=== PATIENT | female | born 1940 | race Hispanic/Latino ===

== ENCOUNTER 2018-10-27 10:18 | Emergency (ER) | payer MEDICARE, MEDICAID ==
--- NOTE | 2018-10-27 10:35 | ED PDOC ---
Arrival/HPI - General Time Seen by Provider: 10/27/18 10:21 Historian: Patient - History of Present Illness Narrative History of Present Illness (Text): 10/27/18 10:34 78 year old female, with past medical history of asthma, hypertension, COPD, CHF, emphysema, pneumonia, and Parkinson's, presents to emergency department with complaints of hemoptysis prior to arrival. Patient states she was coughing earlier and took cough medicine when she spit up blood shortly after. Patient notes associated nausea. Patient denies any fevers, chills, headache, dizziness, abdominal pain, vomiting, diarrhea, or any other complaints. Time/Duration: Prior to Arrival Symptom Onset: Gradual Symptom Course: Unchanged Activities at Onset: Light Context: Home Past Medical History - Provider Review Nursing Documentation Reviewed: Yes - Tetanus Immunization Tetanus Immunization: Unknown - Cardiac Hx Cardiac Disorders: Yes Hx Congestive Heart Failure: Yes Hx Hypertension: Yes - Pulmonary Hx Respiratory Disorders: Yes Hx Asthma: Yes Hx Chronic Obstructive Pulmonary Disease (COPD): Yes Hx Emphysema: Yes Hx Pneumonia: Yes (2-7-14) - Neurological Hx Neurological Disorder: Yes Hx Parkinson's Disease: Yes - HEENT Hx HEENT Disorder: (WEARS RX GLASSES) - Renal Hx Renal Disorder: No - Hematological/Oncological Hx Blood Disorders: No - Integumentary Hx Dermatological Disorder: No - Musculoskeletal/Rheumatological Hx Musculoskeletal Disorders: Yes Hx Arthritis: Yes (Osteoarthritis) Hx Falls: Yes Hx Unsteady Gait: Yes (WALKER) - Gastrointestinal Hx Gastrointestinal Disorders: Yes (CONSTIPATION) Hx Gastroesophageal Reflux: Yes - Genitourinary/Gynecological Hx Genitourinary Disorders: Yes (CHRONIC ESPINO USE,URINARY RETENTION) Hx Incontinence: Yes - Psychiatric Hx Psychophysiologic Disorder: Yes (INSOMNIA) Hx Depression: Yes Hx Emotional Abuse: No Hx Physical Abuse: No Hx Substance Use: No - Past Surgical History Past Surgical History: Unable to Obtain - Surgical History Hx Appendectomy: Yes - Suicidal Assessment Feels Threatened In Home Enviroment: No Family/Social History - Physician Review Nursing Documentation Reviewed: Yes Family/Social History: Unknown Family HX Smoking Status: Unknown If Ever Smoked Hx Alcohol Use: No Hx Substance Use: No Allergies/Home Meds Allergies/Adverse Reactions: Allergies lorazepam Allergy (Verified 10/27/18 10:37) ANAPHYLAXIS milk Allergy (Verified 10/27/18 10:37) VOMITING Penicillins Allergy (Verified 10/27/18 10:37) ANAPHYLAXIS fumarate Allergy (Mild, Uncoded 05/22/13 06:32) RASH quetaipine Allergy (Mild, Uncoded 05/22/13 06:32) RASH Home Medications: Home Meds Medication Instructions Recorded Confirmed Acetaminophen 650 mg PO Q4 PRN 05/22/13 05/22/13 Acetaminophen 650 mg PO Q4 PRN 05/22/13 05/22/13 Acetaminophen/Oxycodone Hydr 1 tab PO HS 05/22/13 05/22/13 [APAP/Oxycodone 325 mg-5 mg] Acetaminophen/Oxycodone Hydr 1 tab PO Q6 PRN 05/22/13 05/22/13 [APAP/Oxycodone 325 mg-5 mg] Albuterol Sulfate [Proair Hfa] 90 mcg IH Q4 PRN 05/22/13 05/22/13 Albuterol Sulfate/Ipratropiu 3 ml IH DAILY PRN 05/22/13 05/22/13 [Ipratropium Warner/Albuterol Sulfate 3 mg/3 ] Albuterol Sulfate/Ipratropiu 3 ml IH QID 05/22/13 05/22/13 [Ipratropium Warner/Albuterol Sulfate 3 mg/3 ] Aluminum Hydroxide/Magnesium 30 ml PO Q4 PRN 05/22/13 05/22/13 [Mylanta 200 mg-200 mg-20 mg] Aripiprazole [Abilify] 10 mg PO HS 05/22/13 05/22/13 Aspirin [Ecotrin] 81 mg PO DAILY 05/22/13 05/22/13 Benztropine [Benztropine Mesylate] 0.5 mg PO BID 05/22/13 05/22/13 Budesonide 0.5 mg IH Q12 05/22/13 05/22/13 Citalopram Hydrobromide 30 mg PO DAILY 05/22/13 05/22/13 [Citalopram] Clonazepam 1 mg PO QID 05/22/13 05/22/13 Esomeprazole Magnesium [Nexium] 40 mg PO DAILY 05/22/13 05/22/13 Famotidine [Pepcid] 40 mg PO HS 05/22/13 05/22/13 Furosemide 20 mg PO DAILY 05/22/13 05/22/13 Gabapentin 600 mg PO HS 05/22/13 05/22/13 Guaifenesin [Robitussin] 100 mg PO Q4 PRN 05/22/13 05/22/13 [id number] [Multivitamins] 1 tab PO DAILY 05/22/13 05/22/13 Polyethylene Glycol 3350 [Miralax] 17 gm PO DAILY 05/22/13 05/22/13 Promethazine Hydrochloride 6.25 mg PO QID PRN 05/22/13 05/22/13 [Promethazine] Simvastatin 20 mg PO HS 05/22/13 05/22/13 Trimethobenzamide Hydrochlor 300 mg PO Q6 PRN 05/22/13 05/22/13 [Tigan] Tiotropium [Spiriva] 18 mcg IH DAILY 06/11/13 06/11/13 Review of Systems - Physician Review All systems were reviewed & negative as marked: Yes - Review of Systems Constitutional: absent: Fevers Respiratory: Cough. absent: SOB Cardiovascular: absent: Chest Pain Gastrointestinal: Nausea (hemoptysis). absent: Abdominal Pain, Diarrhea, Vomiting Genitourinary Female: absent: Urine Output Changes Musculoskeletal: absent: Back Pain, Neck Pain Skin: absent: Rash Neurological: absent: Headache, Dizziness Physical Exam - Physical Exam Narrative Physical Exam (Text): 10/27/18 10:43 Gen: VS reviewed, alert, well developed, well nourished, nontoxic, mild distress Eye: EOMI, PERRL Nose: suspicious for posterior nose bleed, no active bleeding Neck: no JVD, supple, no adenopathy CV: regular rate, regular rhythm, no rubs,no murmur, S1, S2 Pulm: dry blood in tongue/mouth, blood clot in posterior pharynx Abd: soft, nontender, no guarding, no rebound, no rigidity Ext: no edema Skin: pale Psych: responds appropriately to questions, normal affect Neuro: oriented x3, CN2-12 intact grossly, motor intact, sensation intact Vital Signs Reviewed: Yes Temperature: Afebrile Blood Pressure: Normal Pulse: Regular Respiratory Rate: Normal Appearance: Positive for: Well-Appearing, Non-Toxic, Comfortable Pain Distress: None Mental Status: Positive for: Alert and Oriented X 3 Medical Decision Making ED Course and Treatment: 10/27/18 10:42 Impression: 78 year old female presents to emergency department with complaints of hemoptysis prior to arrival. Plan: -- Afrin -- Reassess and disposition Prior Visits: Notes and results from previous visits were reviewed. Progress Notes: 10/27/18 12:38 patient seen for coughing blood but was found to have blood in the posterior pharynx concerning for nosebleed. both nostrils were flushed afrin nasal spray, patient expectorated a decent sized blood clot-after this, there was no blood noted in the posterior pharynx or the nose after a period of observation. patient also coughed up clear mucous. with ok labs, well appearing, patient willing to be discharged home, curb 65, abnormal cxr, i feel patient can be discharged home with outpt abx. with pcn allergy will start alternative regimen. - RAD Interpretation Narrative RAD Interpretations (Text): 10/27/2018 12:29 Chest X-ray IMPRESSION: Right lower lobe opacity may represent aspiration or atelectasis. Cardiomegaly. Dictator: Escobar Vickers MD - Scribe Statement The provider has reviewed the documentation as recorded by the Scribe Golden Sánchez All medical record entries made by the Scribe were at my direction and personally dictated by me. I have reviewed the chart and agree that the record accurately reflects my personal performance of the history, physical exam, medical decision making, and the department course for this patient. I have also personally directed, reviewed, and agree with the discharge instructions and disposition. Disposition/Present on Arrival - Present on Arrival Any Indicators Present on Arrival: No History of DVT/PE: No History of Uncontrolled Diabetes: No Urinary Catheter: Yes History Surgical Site Infection Following: None - Disposition Have Diagnosis and Disposition been Completed?: Yes Diagnosis: Nosebleed, Pneumonia Disposition: HOME/ ROUTINE Disposition Time: 12:46 Patient Plan: Discharge Patient Problems: Current Active Problems Problem Status Onset Nosebleed Acute Pneumonia Acute Condition: STABLE Discharge Instructions (ExitCare): Pneumonia in Adults, Nosebleeds Additional Instructions: apply a thin layer of vaseline in both nostrils before bedtime. take the probiotic to help prevent infection of the intestines. return for any new or worsening symptoms. Prescriptions: Clindamycin [Cleocin] 450 mg PO TID 7 Days #20 cap Lactobacillus Acidophilus [Acidophilus Lactobacilli] 2 each PO BID 14 Days #28 capsule
[2018-10-27 10:36] VITALS: TEMP 98.8
[2018-10-27 10:38] VITALS: BMI 22.3
[2018-10-27] MEDS ORDERED: Oxymetazoline 0.05% Nasal Spray (30 ml) NS STA (10:39)
[2018-10-27 11:13] LABS: BASO # 0.02 K/mm3 (0.0-2.0); BASO % 0.1 % (0.0-3.0); EOS # 0.3 (0.0-0.7); EOS % 2.2 % (1.5-5.0); HEMOGLOBIN 11.9 g/dL (12.0-16.0); LYMPH # 1.4 (1.2-3.4); LYMPH % 10.2 % (22.0-35.0); MEAN CELL VOLUME 92.3 fl (80.0-105.0); MEAN CORPUSCULAR HEMOGLOBIN 29.5 pg (25.0-35.0); MEAN PLATELET VOLUME 9.1 fl (7.0-11.0); MONO # 1.2 (0.1-0.6); RBC 4.03 10^6/uL (3.5-6.1); RED CELL DISTRIBUTION WIDTH 13.7 % (11.5-14.5); WHITE BLOOD COUNT 13.6 10^3/uL (4.5-11.0)
[2018-10-27 11:24] LABS: BLOOD UREA NITROGEN 10 mg/dL (7-21); CALCIUM 9.4 mg/dL (8.4-10.5); GFR NON-AFRICAN AMERICAN > 60
--- NOTE | 2018-10-27 12:33 | RAD ---
Date of service: 10/27/2018 HISTORY: cough, aspiration COMPARISON: No prior. FINDINGS: LUNGS: There is heterogeneous opacity noted at the right lower lobe lung base may represent aspiration or atelectasis. PLEURA: No significant pleural effusion identified, no pneumothorax apparent. CARDIOVASCULAR: No aortic atherosclerotic calcification present. The cardiac silhouette is enlarged. No pulmonary vascular congestion. OSSEOUS STRUCTURES: No significant abnormalities. VISUALIZED UPPER ABDOMEN: Normal. OTHER FINDINGS: None. IMPRESSION: Right lower lobe opacity may represent aspiration or atelectasis. Cardiomegaly.
[2018-10-27 14:50] VITALS: BP 125/51; PULSE 72; RESP 18; O2SAT 96
== END 2018-10-27 15:00 | disposition home or self-care (01) ==
LOC: ED 10:18
DX: J18.9 Pneumonia, unspecified organism (principal); R04.0 Epistaxis; G20 Parkinson's disease; I50.9 Heart failure, unspecified; J44.0 Chronic obstructive pulmonary disease with (acute) lower respiratory infection; I10 Essential (primary) hypertension; M19.90 Unspecified osteoarthritis, unspecified site